=== PATIENT | female | born 2000 | race Caucasian/White ===

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

== ENCOUNTER 2019-08-02 20:28 | Emergency (ER) | payer OTHER ==
[2019-08-02] MEDS ORDERED: KETOROLAC 60 MG/2 ML VIAL IM STA (21:09)
--- NOTE | 2019-08-02 21:25 | XR ---
EXAMINATION TYPE: XR foot complete LT DATE OF EXAM: 08/02/2019 COMPARISON: NONE HISTORY: Pain TECHNIQUE: 3 views FINDINGS: Metatarsals are intact. I see no fracture nor dislocation. Joint spaces are normal. IMPRESSION: Negative left foot exam.
--- NOTE | 2019-08-02 21:25 | XR ---
EXAMINATION TYPE: XR ankle complete LT DATE OF EXAM: 08/02/2019 COMPARISON: NONE HISTORY: Pain TECHNIQUE: 3 views FINDINGS: Ankle mortise is anatomic. I see no fracture nor dislocation. Joint spaces are normal. IMPRESSION: Negative left ankle exam.
--- NOTE | 2019-08-02 21:58 | ED ---
Lower Extremity Injury HPI - General Chief Complaint: Extremity Injury, Lower Stated Complaint: ankle injury Time Seen by Provider: 08/02/19 20:58 Source: patient Mode of arrival: ambulatory Limitations: physical limitation - History of Present Illness Initial Comments: The patient is a 19-year-old female presents emergency Department with reported left ankle pain. She states that earlier today around 6 PM she rolled her left ankle. She did sustain a inversion injury. She has been able to walk on it however it is painful. Most the pain is on the dorsal aspect of her foot. She denies any other injuries sustained. States that she has fractured her left ankle twice prior. Denies any numbness or tingling in her foot. No pain in her hip or knee. No nausea or vomiting with episodes. There are no alleviating, precipitating or modifying factors - Related Data Home Medications Medication Instructions Recorded Confirmed Ranitidine HCl [Zantac] 150 mg PO BID 06/04/16 01/21/17 Melatonin 5 mg PO HS 11/25/16 01/21/17 Naproxen 500 mg PO BID PRN 11/25/16 01/21/17 Pantoprazole [Protonix] 40 mg PO DAILY 11/25/16 01/21/17 QUEtiapine FUMARATE [SEROquel] 200 mg PO HS 11/25/16 01/21/17 Dicyclomine [Bentyl] 20 mg PO TID 01/21/17 01/21/17 FLUoxetine HCL [PROzac] 40 mg PO DAILY 01/21/17 01/21/17 Norgestimate-Ethinyl Estradiol 1 tab PO DAILY 01/21/17 01/21/17 [Tri-Sprintec Tablet] Allergies Allergy/AdvReac Type Severity Reaction Status Date / Time Sulfa (Sulfonamide Allergy Rash/Hives Verified 08/02/19 20:51 Antibiotics) Review of Systems ROS Statement: Those systems with pertinent positive or pertinent negative responses have been documented in the HPI. ROS Other: All systems not noted in ROS Statement are negative. Past Medical History Past Medical History: Asthma History of Any Multi-Drug Resistant Organisms: None Reported Past Surgical History: No Surgical Hx Reported Past Anesthesia/Blood Transfusion Reactions: Unable to Obtain Additional Past Anesthesia/Blood Transfusion Reaction / Comment(s): no surgery or anesthesia Past Psychological History: Anxiety, Depression Smoking Status: Never smoker Past Alcohol Use History: None Reported Past Drug Use History: None Reported - Past Family History Mother Family Medical History: No Reported History General Exam Limitations: no limitations, physical limitation General appearance: alert, in no apparent distress Head exam: Present: atraumatic, normocephalic Extremities exam: Present: other (5/5 muscle strength in the hip flexors, knee extensors, ankle and great toe dorsiflexors and foot plantarflexors. Patient has pain with palpation of the left lateral malleolus. No pain with knee or hip palpation. Intact 2 point discrimiation and soft touch. 2+ DP and PT pulses ) Neurological exam: Present: alert, oriented X3, CN II-XII intact Psychiatric exam: Present: normal affect, normal mood Skin exam: Present: warm, dry, intact Course Vital Signs 08/02/19 08/02/19 20:48 22:09 Temperature 98.4 F 98.2 F Pulse Rate 97 91 Respiratory 18 16 Rate Blood Pressure 128/84 127/78 O2 Sat by Pulse 99 98 Oximetry Medical Decision Making - Medical Decision Making Upon arrival the patient was placed into rosa 3 and physical exam was performed. I did offer the patient something for pain control. She was given a dose of Toradol. I did send her over for an x-ray of her left foot and ankle which demonstrates no acute fractures. At this time the patient will be placed into a stirrup splint. She is to follow-up with her primary care doctor in 2-4 days. I did recommend repeat imaging the patient does have persistent pain. She is to rest, ice and elevate the extremity. Return to the emergency room for any new or worsening symptoms. The patient was discharged home in stable condition Disposition Clinical Impression: Ankle sprain Disposition: HOME SELF-CARE Condition: Stable Instructions (If sedation given, give patient instructions): Ankle Sprain (ED) Additional Instructions: Weight bear as tolerated. Return to the emergency room for any new or worsening symptoms. Take Motrin and Tylenol for pain. Rest, ice and elevate your extremity. Follow-up with your primary care doctor in 2-4 days. Follow-up with the orthopedic surgeon if your pain persists Is patient prescribed a controlled substance at d/c from ED?: No Referrals: None,Stated [Primary Care Provider] - 1-2 days Time of Disposition: 21:55
[2019-08-02 22:11] VITALS: BP 127/78; PULSE 91; RESP 16; TEMP 98.2
== END 2019-08-02 22:08 | disposition home or self-care (01) ==
LOC: EC 20:28
DX: S93.402A Sprain of unspecified ligament of left ankle, initial encounter (principal); F32.9 Major depressive disorder, single episode, unspecified; F41.9 Anxiety disorder, unspecified; Z88.2 Allergy status to sulfonamides; Z79.3 Long term (current) use of hormonal contraceptives; Z79.899 Other long term (current) drug therapy; Z87.81 Personal history of (healed) traumatic fracture; X50.1XXA Overexertion from prolonged static or awkward postures, initial encounter; Y92.009 Unspecified place in unspecified non-institutional (private) residence as the place of occurrence of the external cause; Y93.01 Activity, walking, marching and hiking
CPT/HCPCS: 99283; 29515; 96372; 73610; 73630; L4350; J1885

== ENCOUNTER 2019-09-28 12:37 | Emergency (ER) | payer OTHER ==
[2019-09-28 12:43] VITALS: BP 145/88; PULSE 79; RESP 18; TEMP 98.9
--- NOTE | 2019-09-28 13:40 | CT ---
EXAMINATION TYPE: CT brain wo con DATE OF EXAM: 09/28/2019 COMPARISON: CT brain August 08, 2015. HISTORY: Syncope, dizziness, change in memory CT DLP: 1040.4 mGycm. Automated Exposure Control for Dose Reduction was Utilized. TECHNIQUE: CT scan of the head is performed without contrast. FINDINGS: There is no acute intracranial hemorrhage, mass effect, or midline shift identified. The ventricles and sulci are within normal limits in size. Gee-white matter differentiation is maintain ed. Slightly low-lying cerebellar tonsils sagittal image 34 without definitive greater than 5 mm infe rior descent are unchanged from prior studies aerated The globes are intact and the visualized sinus es are clear. IMPRESSION: No acute intracranial hemorrhage or midline shift is seen.
--- NOTE | 2019-09-28 14:00 | ED ---
Head Injury HPI - General Chief complaint: Head Injury Stated complaint: syncope, altered Time Seen by Provider: 09/28/19 12:44 Source: patient Mode of arrival: wheelchair Limitations: no limitations - History of Present Illness Initial comments: Patient is a 19-year-old female, with hx of chiari malformation type 1, presenting to the emergency Department with complaints of a headache after falling on it yesterday. Patient states she was with her grandmother at their house when she took a huge bite of whipped cream and thought she might a started choking on it. Patient states she sat down and then felt like she was gasping for air for a minute. She fell backwards hitting her head on the floor. Patient states she might have had loss of consciousness for 1-2 seconds. Grandmother states that by the time she walked over there she was already sitting up. Patient states she has had these episodes in the past. Patient states yesterday after this event she had a mild headache and felt a little nausea. There were no episodes of vomiting. Patient states she comes today because she feels like she's been having memory problems today as well as increased headache. Patient was able to tell me the whole story yesterday without any complications. She denies any blurry vision, nausea, vomiting, chest pain, shortness of breath. Patient has no other complaints at this time. Upon arrival to ER, vital signs are stable. - Related Data Home Medications Medication Instructions Recorded Confirmed Ranitidine HCl [Zantac] 150 mg PO BID 06/04/16 01/21/17 Melatonin 5 mg PO HS 11/25/16 01/21/17 Naproxen 500 mg PO BID PRN 11/25/16 01/21/17 Pantoprazole [Protonix] 40 mg PO DAILY 11/25/16 01/21/17 QUEtiapine FUMARATE [SEROquel] 200 mg PO HS 11/25/16 01/21/17 Dicyclomine [Bentyl] 20 mg PO TID 01/21/17 01/21/17 FLUoxetine HCL [PROzac] 40 mg PO DAILY 01/21/17 01/21/17 Norgestimate-Ethinyl Estradiol 1 tab PO DAILY 01/21/17 01/21/17 [Tri-Sprintec Tablet] Allergies/Adverse reactions: Allergies Allergy/AdvReac Type Severity Reaction Status Date / Time latex Allergy Rash/Hives Verified 09/28/19 12:43 Sulfa (Sulfonamide Allergy Rash/Hives Verified 09/28/19 12:43 Antibiotics) Review of Systems ROS Statement: Those systems with pertinent positive or pertinent negative responses have been documented in the HPI. ROS Other: All systems not noted in ROS Statement are negative. Past Medical History Past Medical History: Asthma Additional Past Medical History / Comment(s): chiari malformation type 1 History of Any Multi-Drug Resistant Organisms: None Reported Past Surgical History: No Surgical Hx Reported Past Anesthesia/Blood Transfusion Reactions: Unable to Obtain Additional Past Anesthesia/Blood Transfusion Reaction / Comment(s): no surgery or anesthesia Past Psychological History: Anxiety, Depression Smoking Status: Never smoker Past Alcohol Use History: None Reported Past Drug Use History: None Reported - Past Family History Mother Family Medical History: No Reported History General Exam - General Exam Comments Initial Comments: GENERAL: Well-appearing, well-nourished and in no acute distress. HEAD: Atraumatic, normocephalic. No signs of basal skull fracture. EYES: Pupils equal round and reactive to light, extraocular movements intact, sclera anicteric, conjunctiva are normal. ENT: TMs normal, nares patent, oropharynx clear without exudates. Moist mucous membranes. NECK: Normal range of motion, supple without lymphadenopathy or JVD. LUNGS: Breath sounds clear to auscultation bilaterally and equal. No wheezes rales or rhonchi. HEART: Regular rate and rhythm without murmurs, rubs or gallops. ABDOMEN: Soft, nontender, normoactive bowel sounds. No guarding, no rebound. No masses appreciated. : Deferred EXTREMITIES: Normal range of motion, no pitting or edema. No clubbing or cyanosis. Strength is 5 out of 5 in upper and lower extremities bilaterally. Sensation is equal and bilateral. NEUROLOGICAL: Cranial nerves II through XII grossly intact. Normal speech, normal gait. PSYCH: Normal mood, normal affect. SKIN: Warm, Dry, normal turgor, no rashes or lesions noted. Limitations: no limitations Course Vital Signs 09/28/19 12:40 Temperature 98.9 F Pulse Rate 79 Respiratory 18 Rate Blood Pressure 145/88 O2 Sat by Pulse 99 Oximetry Medical Decision Making - Medical Decision Making Patient is a 19-year-old female presenting for a headache after falling backwards onto her head yesterday. Her vital signs are stable. Her exam today is unremarkable. Patient has no neuro deficits. Patient was seen ambulating great without assistance. CT of the head was performed and shows no acute abnormalities. I discussed with patient this is most likely a concussion. I do not believe she sustained a true syncopal episode. Patient is in agreement with this. We discussed limiting her cell phone use as well as reading or other classwork. Also limit physical activity. Patient will go home and rest she may also take Tylenol or Motrin for headache. Patient is in agreement with this plan of care. She'll follow up with PCP as needed. Strict return parameters were discussed with the patient and she verbalized understanding. Case discussed with Dr. Hassan. Disposition Clinical Impression: Concussion, Headache Disposition: HOME SELF-CARE Condition: Stable Instructions (If sedation given, give patient instructions): Concussion (ED) Additional Instructions: Please return to the Emergency Department if symptoms worsen or any other concerns. Limited physical activity, phone use. May use Tylenol or Motrin for symptom relief. Increase fluid intake. Follow-up with PCP. Is patient prescribed a controlled substance at d/c from ED?: No Referrals: Baljinder Roldan MD [Primary Care Provider] - 1-2 days
== END 2019-09-28 14:09 | disposition home or self-care (01) ==
LOC: EC 12:37
DX: S06.0X1A Concussion with loss of consciousness of 30 minutes or less, initial encounter (principal); F32.9 Major depressive disorder, single episode, unspecified; F41.9 Anxiety disorder, unspecified; Z88.2 Allergy status to sulfonamides; Z91.040 Latex allergy status; Z79.3 Long term (current) use of hormonal contraceptives; Z79.899 Other long term (current) drug therapy; Z86.69 Personal history of other diseases of the nervous system and sense organs; W01.0XXA Fall on same level from slipping, tripping and stumbling without subsequent striking against object, initial encounter; Y93.89 Activity, other specified; Y92.009 Unspecified place in unspecified non-institutional (private) residence as the place of occurrence of the external cause
CPT/HCPCS: 70450; 99284